=== PATIENT | male | born 1945 | race Two or more races ===

== ENCOUNTER 2024-10-24 10:24 | Inpatient (IN) | payer MEDICAID, OTHER ==
[~2024-10-24] VITALS: Ht 160 cm; Wt 68.0 kg
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
[2024-10-24] MEDS: HYDROcodone-ACET 5/325MG TAB PO ONE (11:43)
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
[2024-10-24] MEDS: DOPamine 1600MCG/ML D5W 250 ML IV ONE (13:00)
[2024-10-24 13:17] LABS: Hematocrit 41.6 % (41.0-53.0); Hemoglobin 13.8 g/dL (13.5-17.5); Mean Corpuscular Hemoglobin 28.3 pg (28.0-32.0); Mean Corpuscular Volume 85.1 fL (80.0-100.0); Nucleated Red Blood Cells % 0.3 %
[2024-10-24 13:27] LABS: Potassium 4.7 mmol/L (3.5-5.1); Sodium 141 mmol/L (136-145)
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
[2024-10-24 13:28] LABS: Anion Gap 8 (5-15); Calcium 9.0 mg/dL (8.7-10.4); Carbon Dioxide 26 mmol/L (20-31)
[2024-10-24 13:33] LABS: BUN/Creatinine Ratio 13.9 (10.0-20.0); Blood Urea Nitrogen 17 mg/dL (9-23)
[2024-10-24 13:34] LABS: Chloride 107 mmol/L (98-107); Glucose 141 mg/dL (74-106)
[2024-10-24] MEDS: ATROPINE SULF 1 MG/10ml SYR IV ONE ×2 (14:00→16:14)
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
[2024-10-24 14:12] VITALS: PULSE 50; RESP 16; O2SAT 98
[2024-10-24] MEDS ORDERED: HYDROcodone-ACET 5/325MG TAB PO PRN (14:15)
[2024-10-24] MEDS ORDERED: ACETAMINOPHEN 325 MG TAB PO PRN (14:15)
[2024-10-24] MEDS ORDERED: MORPHINE SULFATE INJ 2 MG/ml SYRG IV PRN (14:15)
[2024-10-24] MEDS ORDERED: NITROGLYCERIN 0.4 MG SL TAB SL PRN (14:15)
[2024-10-24] MEDS ORDERED: DOCUSATE SOD 100 MG CAP PO PRN (14:15)
[2024-10-24 15:02] LABS: Triglycerides 73.0 mg/dL (< 150)
[2024-10-24 15:03] LABS: Magnesium 2.1 mg/dL (1.6-2.6)
[2024-10-24 15:04] LABS: HDL Cholesterol 42.0 mg/dL (40-59)
[2024-10-24 15:05] LABS: Cholesterol 138.0 mg/dL (< 200)
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
--- NOTE | 2024-10-24 15:55 | DVHSR ---
APPROVED REPORT EXAM: Two-dimensional and M-mode echocardiogram with Doppler and color Doppler. Blood Pressure: 200/91 mmHg INDICATION Symptomatic bradycardia RISK FACTORS Height: 5'3", Weight: 184 DIMENSIONS LVDd (3.8-5.7cm)LA (2D)3.4 (1.9-4.0cm)Aortic Root3.2 (2.0-3.7cm) LVDs (2.5-4.0cm)LA (MM) (1.9-4.0cm)Aortic Cusp Exc1.6 (1.5-2.0cm) EF (%) 60.0 (55-70%)Rt. Atrium3.5 (1.9-4.0cm)Asc. Aorta cm IVSd (0.7-1.1cm)RV (D)3.4 (1.8-2.4cm) Mitral Valve MitralMitral Stenosis E wave0.84m/sMV Mean GR.mmHg E/A ratio0.02D MVAcm2 Aortic Valve Aortic ValveAortic Stenosis V11.03m/Gilda Mean GR.3mmHg V21.33m/Gilda Peak GR.7mmHg LVOT Diameter1.8 (1.8-2.4cm)Doppler AVA1.97cm2 Tricuspid Valve TR Velocity2.37m/s [id number] Other Information Quality : Rhythm : Bradycardia Technically limited study due to body habitus. Conclusion NORMAL LV EF AND IS 65% NORMAL VALVES NORMAL RV FUNCTION AND SIZE NO EFFUSION
[2024-10-24] MEDS: SODIUM CHLORIDE 0.9% 1,000 ML IV ONE (16:30)
[2024-10-24] MEDS: DOPamine 1600MCG/ML D5W 250 ML IV SCH (17:15)
[2024-10-24] MEDS ORDERED: LISI10TA34 PO (17:27)
[2024-10-24] MEDS ORDERED: ATROPINE SULF 1 MG/10ml SYR IV PRN (17:30)
[2024-10-24 19:30] VITALS: PULSE 52; RESP 15; O2SAT 96
[2024-10-24] MEDS: hydrALAZINE HCL 20 MG/ML VL IV PRN (21:01)
[2024-10-24] MEDS: ONDANSETRON HCL 4 MG/2 ML VIAL IV PRN (21:36)
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
[2024-10-25] VITALS (70 sets, daily range): BP systolic 94–189; BP diastolic 30–81; PULSE 46–99; RESP 8–19; TEMP 98.2–98.8; O2SAT 92–100
[2024-10-25 02:09] LABS: Urine Protein, UAD Negative (Negative)
[2024-10-25 04:01] LABS: Hematocrit 43.1 % (41.0-53.0); Hemoglobin 14.6 g/dL (13.5-17.5); Mean Corpuscular Hemoglobin 28.6 pg (28.0-32.0); Mean Corpuscular Volume 84.4 fL (80.0-100.0); Nucleated Red Blood Cells % 0.0 %
[2024-10-25 04:14] LABS: Alanine Aminotransferase 19 U/L (7-40); Albumin 3.9 g/dL (3.2-4.8); Alkaline Phosphatase 72 U/L (46-116); Anion Gap 10 (5-15); BUN/Creatinine Ratio 13.4 (10.0-20.0); Bilirubin, Total 0.7 mg/dL (0.2-1.0); Blood Urea Nitrogen 16 mg/dL (9-23); Calcium 9.0 mg/dL (8.7-10.4); Carbon Dioxide 23 mmol/L (20-31); Chloride 106 mmol/L (98-107); Potassium 4.0 mmol/L (3.5-5.1); Sodium 139 mmol/L (136-145); Total Protein 6.5 g/dL (5.7-8.2)
[2024-10-25 04:16] LABS: Glucose 168 mg/dL (74-106)
--- NOTE | 2024-10-25 07:12 | ECG ---
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
[2024-10-25] MEDS: DOPamine 1600MCG/ML D5W 250 ML IV SCH (11:45)
--- NOTE | 2024-10-25 14:13 | DVHPN2 ---
Subjective Currently on dopamine drip Heart rate in 60s Denies dizziness, chest pain or shortness Reviewed: Care Plan, H&P, Labs, Medications, Previous Orders, Radiology Changes from previous H/P or p: No Changes Eyes: No Pain, No Vision change, No Conjunctivae inflammation, No Eyelid inflammation, No Other, No Redness ENT: No Ear pain, No Ear discharge, No Nose pain, No Nose discharge, No Nose congestion, No Mouth pain, No Mouth swelling, No Throat pain, No Throat swelling, No Other Cardiovascular: No Chest Pain, No Palpitations, No Orthopnea, No Paroxysmal Noc. Dyspnea, No Edema, No Lt Headedness, No Other Respiratory: No Cough, No Dry, No Shortness of breath, No SOB with excertion, No Wheezing, No Hemoptysis, No Pleuritic Pain, No Sputum, No Other Gastrointestinal: No Nausea, No Vomiting, No Abdominal Pain, No Diarrhea, No Constipation, No Melena, No Hematochezia, No Other Genitourinary: No Dysuria, No Frequency, No Incontinence, No Hematuria, No Retention, No Other Musculoskeletal: No other, No neck pain, No shoulder pain, No arm pain, No back pain, No hand pain, No leg pain, No foot pain Skin: No Rash, No Lesions, No Jaundice, No Bruising, No Other Objective Vitals Vital Signs Date Time Temp Pulse Resp B/P (MAP) Pulse Ox O2 Delivery O2 Flow Rate FiO2 10/25/24 13:00 63 12 140/60 (86) 97 10/25/24 12:00 98.5 98.5 10/25/24 08:00 Room Air* 0 21 Intake/Output Intake and Output 10/25/24 07:00 Intake Total 1113.412 ml Output Total 450 ml Balance 663.412 ml Intake Oral 0 ml IV Total 1113.412 ml Output Urine Total 450 ml # Voids 2 Medications Current Medications Medications Dose Ordered Sig/Richard Route Start Time Stop Time Status Last Admin Dose Admin Acetaminophen/ Hydrocodone Bitart 1 tab Q4HP PRN PO 10/24/24 14:15 Ondansetron HCl 4 mg Q4HP PRN IV 10/24/24 14:15 10/24/24 21:36 4 MG Docusate Sodium 100 mg BIDPRN PRN PO 10/24/24 14:15 Acetaminophen 650 mg Q6HP PRN PO 10/24/24 14:15 Nitroglycerin 0.4 mg Q5MINP PRN SL 10/24/24 14:15 Morphine Sulfate 2 mg Q30M PRN IV 10/24/24 14:15 Atropine Sulfate 0.5 mg Q15MP PRN IV 10/24/24 17:30 Hydralazine HCl 10 mg Q6HP PRN IV 10/24/24 20:30 10/25/24 06:40 10 MG Dopamine HCl/ Dextrose 250 ml @ 15.731 mls/ hr [id number] IV 10/25/24 11:45 Laboratory Results Laboratory Tests 10/25/24 02:45 Chemistry Test 10/25/24 02:45 Albumin 3.9 g/dL (3.2-4.8) Calcium Level 9.0 mg/dL (8.7-10.4) Total Protein 6.5 g/dL (5.7-8.2) LFT Test 10/25/24 02:45 Alanine Aminotransferase (ALT) 19 U/L (7-40) Alkaline Phosphatase 72 U/L (46-116) Aspartate Amino Transferase (AST) 24 U/L (13-40) Total Bilirubin 0.7 mg/dL (0.2-1.0) Urinalysis Test 10/25/24 00:08 Urine Color Colorless (Yellow) Urine Clarity Clear (Clear) Urine pH 7.5 (5.0-9.0) Urine Specific [place] 1.009 (1.001-1.035) Urine Protein Negative (Negative) Urine Ketones Trace (Negative) Urine Blood Negative /uL (Negative) Urine Nitrite Negative (Negative) Urine Bilirubin Negative (Negative) Urine Urobilinogen Normal mg/dL (Negative) Urine Leukocyte Esterase Negative /uL (Negative) Urine RBC 4 /hpf (0 - 3) Urine Microscopic WBC 6 /HPF (0-3) H Urine Squamous Epithelial Cells None seen /hpf (<5) Urine Bacteria Few /hpf (None Seen) H Urine Glucose Normal mg/dL (Normal) Assessment/Plan Assessment/Plan Sinus bradycardia, currently asymptomatic Essential hypertension Type 2 diabetes s/p [facility] Plan/Recommendation (Dr. Huddleston ): The patient was started on dopamine drip last night, with improvement in heart rate into 60s. However, telemetry monitoring this morning revealed intermittent sinus pauses and continued episodes of bradycardia. Given the ongoing symptomatic bradycardia, the patient is deemed to be an appropriate candidate for permanent pacemaker implantation. Risks, benefits, and alternatives were discussed in detail with patient and his granddaughter, whom both expressed understanding and agreed to proceed with the procedure. Plan discussed with: Patient My Orders Orders - CATHERINE PANIAGUA Procedure Category Date Status Time Atropine Adult Syr PHA 10/24/24 In Process 0.1mg/Ml (Atropine Haddad 17:30 Date of Service: Oct 25, 2024 Billing Provider: LEI HUDDLESTON MD Common Visit Codes: CONSULT ONLY Consultation Codes: [id number] CONSULT <45MIN CATHERINE PANIAGUA Oct 25, 2024 14:13
[2024-10-25 15:02] LABS: INR 1.07 (0.9-1.15); Prothrombin Time 11.3 sec (9.3-11.8)
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
[2024-10-26] VITALS (95 sets, daily range): BP systolic 91–186; BP diastolic 31–82; PULSE 45–107; RESP 8–19; TEMP 98.1–99.8; O2SAT 87–100
--- NOTE | 2024-10-26 05:01 | DVH ---
CHEST RADIOGRAPH Indication: PROCEDURE PREP Technique: Single frontal view of the chest was obtained COMPARISON: XY RIBS BILATERAL on DOS: 10/24/24 FINDINGS: Lines and Tubes: None Lungs: Congestion Pleura: No effusion. No pneumothorax. Cardiomediastinal contours: Unremarkable Bones: Unremarkable IMPRESSION: Mild congestion
[2024-10-26 06:34] LABS: Hematocrit 44.7 % (41.0-53.0); Hemoglobin 15.4 g/dL (13.5-17.5); Mean Corpuscular Hemoglobin 28.9 pg (28.0-32.0); Mean Corpuscular Volume 84.0 fL (80.0-100.0); Nucleated Red Blood Cells % 0.1 %
[2024-10-26 06:35] LABS: INR 1.06 (0.9-1.15); Partial Thromboplastin Time 27.5 SEC (24.5-34.5); Prothrombin Time 11.2 sec (9.3-11.8)
[2024-10-26 06:40] LABS: Alanine Aminotransferase 20 U/L (7-40); Albumin 3.9 g/dL (3.2-4.8); Alkaline Phosphatase 70 U/L (46-116); Anion Gap 10 (5-15); BUN/Creatinine Ratio 16.3 (10.0-20.0); Blood Urea Nitrogen 20 mg/dL (9-23); Calcium 8.7 mg/dL (8.7-10.4); Carbon Dioxide 22 mmol/L (20-31); Chloride 109 mmol/L (98-107); Glucose 136 mg/dL (74-106); Potassium 4.0 mmol/L (3.5-5.1); Sodium 141 mmol/L (136-145); Total Protein 6.5 g/dL (5.7-8.2)
[2024-10-26 06:41] LABS: Bilirubin, Total 0.7 mg/dL (0.2-1.0)
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
[2024-10-26] MEDS: LISINOPRIL 5 MG TAB PO SCH (11:38)
[2024-10-26] MEDS ORDERED: ARTIFICIAL TEARS 15ml EACHEYE PRN (15:15)
[2024-10-26] MEDS ORDERED: LATA0.0020 EACHEYE (19:44)
[2024-10-26] MEDS: LATANOPROST 0.005 % OPTH(EYE) SOL 2.5ML EACHEYE SCH (22:00)
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
[2024-10-27] VITALS (99 sets, daily range): BP systolic 80–209; BP diastolic 26–102; PULSE 44–123; RESP 8–25; TEMP 98.1–98.5; O2SAT 6–99
[2024-10-27 05:03] LABS: Hematocrit 43.0 % (41.0-53.0); Hemoglobin 14.5 g/dL (13.5-17.5); Mean Corpuscular Hemoglobin 28.4 pg (28.0-32.0); Mean Corpuscular Volume 84.2 fL (80.0-100.0); Nucleated Red Blood Cells % 0.1 %
[2024-10-27 05:23] LABS: Alanine Aminotransferase 15 U/L (7-40); Alkaline Phosphatase 68 U/L (46-116); Anion Gap 7 (5-15); BUN/Creatinine Ratio 19.3 (10.0-20.0); Blood Urea Nitrogen 21 mg/dL (9-23); Carbon Dioxide 24 mmol/L (20-31); Magnesium 2.0 mg/dL (1.6-2.6); Potassium 4.2 mmol/L (3.5-5.1); Sodium 139 mmol/L (136-145); Total Protein 6.1 g/dL (5.7-8.2)
[2024-10-27 05:24] LABS: Albumin 3.6 g/dL (3.2-4.8); Bilirubin, Total 0.7 mg/dL (0.2-1.0)
[2024-10-27 05:25] LABS: Calcium 8.6 mg/dL (8.7-10.4); Chloride 108 mmol/L (98-107); Glucose 128 mg/dL (74-106)
[2024-10-27] MEDS: DOPamine 1600MCG/ML D5W 250 ML IV SCH (08:18)
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
[2024-10-28] VITALS (75 sets, daily range): BP systolic 80–196; BP diastolic 39–88; PULSE 41–126; RESP 7–19; TEMP 97.9–98.3; O2SAT 90–100
--- NOTE | 2024-10-28 03:28 | DVH ---
CHEST RADIOGRAPH Indication: PROCEDURE PREP Technique: 1 view Comparison: XY CHEST PORTABLE on DOS: 10/26/24, XY RIBS BILATERAL on DOS: 10/24/24 FINDINGS: Lines and Tubes: External leads. Lungs: Similar perihilar interstitial opacities and left basilar atelectasis. No focal consolidation . Pleura: No large pleural effusion or pneumothorax. Cardiomediastinal contours: Unchanged. Other: Unchanged. IMPRESSION: 1. No significant change from the prior exam. Interstitial opacities likely representing edema versus atypical infection.
[2024-10-28 05:22] LABS: Hematocrit 41.8 % (41.0-53.0); Hemoglobin 14.2 g/dL (13.5-17.5); Mean Corpuscular Hemoglobin 28.7 pg (28.0-32.0); Mean Corpuscular Volume 84.2 fL (80.0-100.0); Nucleated Red Blood Cells % 0.2 %
[2024-10-28] MEDS: NITROGLYCERIN 2% OINT 1GM PKG TD ONE (05:30)
[2024-10-28 05:44] LABS: Alanine Aminotransferase 16 U/L (7-40); Albumin 3.7 g/dL (3.2-4.8); Alkaline Phosphatase 67 U/L (46-116); Anion Gap 8 (5-15); BUN/Creatinine Ratio 15.3 (10.0-20.0); Bilirubin, Total 1.0 mg/dL (0.2-1.0); Blood Urea Nitrogen 18 mg/dL (9-23); Carbon Dioxide 25 mmol/L (20-31); Chloride 106 mmol/L (98-107); Potassium 4.1 mmol/L (3.5-5.1); Sodium 139 mmol/L (136-145); Total Protein 6.1 g/dL (5.7-8.2)
[2024-10-28 05:52] LABS: Calcium 8.7 mg/dL (8.7-10.4); Glucose 110 mg/dL (74-106)
[2024-10-28 05:59] LABS: INR 1.07 (0.9-1.15); Partial Thromboplastin Time 28.4 SEC (24.5-34.5); Prothrombin Time 11.3 sec (9.3-11.8)
[2024-10-28] MEDS: IODIXANOL 320MG/ML 100ML BTL IV ONE ×2 (07:58→09:12)
[2024-10-28] MEDS: LIDOCAINE 2%HCL (LOCAL ANESTH.) INJ 20ML MDV ONE (08:09)
[2024-10-28] MEDS: fentaNYL CITRATE 100 MCG/2 ML VL ONE (08:10)
[2024-10-28] MEDS: MIDAZOLAM HCL 2MG/2ML 2ml VIAL (1mg/ml) ONE (08:10)
[2024-10-28] MEDS: VANCOMYCIN 1GM/200ML PM 200 ML IV ONE (08:36)
[2024-10-28] MEDS: HEPARIN SODIUM (PORCINE) 5000 UNITS/ML 1ML VIAL ONE (08:44)
--- NOTE | 2024-10-28 10:33 | DVH ---
CHEST RADIOGRAPH Indication: PACEMAKER PLACEMENT Technique: Single frontal view of the chest was obtained COMPARISON: XY CHEST PORTABLE on DOS: 10/28/24, XY CHEST PORTABLE on DOS: 10/26/24, XY RIBS BILATERAL on DOS: 10/24/24 FINDINGS: Lines and Tubes: None Lungs: Clear Pleura: No effusion. No pneumothorax. Cardiomediastinal contours: Unremarkable Bones: Unremarkable IMPRESSION: No acute disease.
--- NOTE | 2024-10-28 11:08 | DVHOP ---
DATE OF SURGERY: 10/28/2024 TECHNIQUE PERFORMED: * Emergency case. * Ultrasound of the right femoral vein with an insertion of 6-Danish venous line in the right femoral vein. * Insertion of large caliber venous system in the right femoral venous line. * Fluoroscopic guidance and supervision. * Management of conscious sedation. * Deployment of the Micra permanent pacemaker in higher interventricular septum, assisted by Dr. Mclean. * Figure-8 suture. PRIMARY SURGEON: Dr. Roberto Huddleston. OTHER BUSINESS SERVICES REPRESENTATIVE: Amelie Keith. COMPLICATIONS: None. INDICATIONS: The patient has underlying sick sinus syndrome, profound bradycardia. The patient was dependent on the dopamine to keep the heart rate to normal. DESCRIPTION OF PROCEDURE: Risks and benefits discussed in a standard manner. The patient's right groin was shaved, was cleaned with soap and Betadine. IV Versed and fentanyl were given. The patient was given lidocaine. Venous line was obtained. A 6-Danish venous line had been placed subsequently under fluoroscopic guidance. We have exchanged with a large caliber venous line of the [employer] company and subsequently we have put a Micra device in a standard manner. We have to ultimately adjust into higher septum to get a better parameter and the procedure went well. All the venous sites had been very well sutured and there is no bleeding. There is no hematoma. We have following report available: Model #[id number], serial #[id number], assistant grocery is [employer]. Implantation date 10/28. Implantation site, right ventricular at the higher septum. The patient's R-wave is 9.5, pacing impedance 1740. The patient's threshold is 0.75 at 0.24 milliseconds and this device is a VDDD 50-110. The patient also got IV vancomycin prior to performing this procedure. Macho Huddleston MD MP/BOB/JOLIE TID: [id number] RECEIPT: [id number]
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
--- NOTE | 2024-10-28 12:45 | ECG ---
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
--- NOTE | 2024-10-28 13:32 | ECG ---
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
[2024-10-29] VITALS (11 sets, daily range): BP systolic 122–146; BP diastolic 56–77; PULSE 48–69; RESP 16–18; TEMP 97.4–98.5; O2SAT 96–99
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
[2024-10-30] VITALS (8 sets, daily range): BP systolic 104–145; BP diastolic 58–73; PULSE 50–60; RESP 16–18; TEMP 97.5–98.1; O2SAT 97–99
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
[2024-10-30] MEDS ORDERED: DOCUSATE SOD 100 MG CAP PO PRN (10:30)
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
[2024-10-31] VITALS (8 sets, daily range): BP systolic 105–152; BP diastolic 57–96; PULSE 49–62; RESP 18; TEMP 97.8–98.4; O2SAT 97–98
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
[2024-11-01 01:00] VITALS: BP 149/55; PULSE 56; RESP 18; TEMP 98.2; O2SAT 99
[2024-11-01 05:00] VITALS: BP 111/74; PULSE 66; RESP 18; TEMP 98.6; O2SAT 97
[2024-11-01 08:00] VITALS: PULSE 50; PULSE 60; RESP 18; O2SAT 97
[2024-11-01 08:39] VITALS: BP 124/68; PULSE 50; RESP 20; TEMP 97.9; O2SAT 99
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
[2024-11-01] MEDS ORDERED: LISI20TA56 PO (12:01)
[2024-11-01 12:46] VITALS: BP 102/67; PULSE 54; RESP 20; TEMP 97.6; O2SAT 98
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
== END 2024-11-01 16:00 | disposition home or self-care (01) | DRG 171 ==
LOC: EDBD 10:24 → ER 10:24 → OVERFLOW 14:01 → ICU CENTRL 10-25 05:16 → TELE-WESTW 10-28 17:25
PROVIDERS: ADMIT Family Medicine; ATTEND Family Medicine
PROC: 02HK3NZ Insertion of Intracardiac Pacemaker into Right Ventricle, Percutaneous Approach (ICD-10-PCS; principal; 2024-10-28)
PROC: 4B02XSZ Measurement of Cardiac Pacemaker, External Approach (ICD-10-PCS; 2024-11-01)
DX: I49.5 Sick sinus syndrome (principal); E11.9 Type 2 diabetes mellitus without complications; I44.0 Atrioventricular block, first degree; Z00.6 Encounter for examination for normal comparison and control in clinical research program; I10 Essential (primary) hypertension; M79.18 Myalgia, other site; S50.311A Abrasion of right elbow, initial encounter; Z79.899 Other long term (current) drug therapy; V89.2XXA Person injured in unspecified motor-vehicle accident, traffic, initial encounter; Y93.89 Activity, other specified; Y92.89 Other specified places as the place of occurrence of the external cause; Y99.8 Other external cause status
CPT/HCPCS: 33274; 36415; 70450; 71045; 71111; 73070; 80048; 80053; 80061; 81001; 82962; 83036; 83735; 84443; 84484; 85025; 85610; 85730; 86850; 86900; 86901; 87081; 93005; 93306; 96374; 96375; 99152; 99291; 99292; G0378; J2250; J2405; Q9967

== ENCOUNTER 2024-11-12 18:00 | Inpatient (IN) | payer MEDICAID ==
[~2024-11-12] VITALS: Ht 152.4 cm; Wt 64.8 kg
[~2024-11-12 18:00] MED LIST: LATA0.0020 EACHEYE; LISI10TA34 PO; LISI20TA56 PO
--- NOTE | 2024-11-12 18:51 | ED.PDOC ---
GI ASSESSMENT HPI Comments HPI: 79-year-old male came to the ER due to vomiting and diarrhea. Patient accompanied by granddaughter who gets history for us. States patient since this morning has been having episodes of nausea, vomiting 2x, and loose yellowish diarrhea 3x. States he could not keep anything in. Also complaining of lower abdominal pain, dizziness and generalized weakness Initial Vitals BP: 161/55 HR: 57 RR: 13 O2: 97% Temp: 98.1 F Past Medical History: Hypertension Past Surgical History: Pacemaker two weeks ago Social History: Denies ETOH, smoking, and drug use. Medications: Lisinopril Allergies: None HPI: Poor Historian. Onset of symptoms today. Nausea vomiting nonbilious nonbloody color is food content. Diarrhea is yellow in color. Generalized weakness. Had earlier some lower abdominal pain but has resolved prior to our evaluation. Stool studies were ordered and requested from the patient. REVIEW OF SYSTEMS: CONSTITUTIONAL: Denies acute: fever, diaphoresis, chills, HEAD: Denies acute: headache, photophobia Eyes: Denies acute: Double vision, vision loss, eye pain, eye discharge. EARS: Denies acute: tinnitus, hearing loss, ear discharge, ear pain, THROAT: Denies acute: sore throat, swelling, difficulty swallowing , pain with swallowing, change in voice. NECK: Denies acute: neck pain, neck swelling, stiff neck. HEART: Denies acute : chest pain, palpitations, LUNGS: Denies acute: SOB, wheezing, cough, hemoptysis ABDOMEN: Denies acute: abdominal pain, melena , hematemesis, hematochezia SKIN: Denies acute: rash, redness, lesions, itchiness. EXTREMITIES: Denies acute: calf pain, numbness, tingling, weakness, denies pain in extremity. Denies acute: Low back pain. Neuro: Denies acute: focal neurological deficit, motor or sensory focal neurological deficit, tremors, seizure like activity, confusion, dizziness, change in mental status, loss of bowel or bladder function, cauda equina like symptoms. PSYCH: Denies acute: hallucination, suicidal ideation, homicidal ideation. FEMALE: Denies acute: abnormal vaginal bleeding, foul odor, unusual discharge. PHYSICAL EXAM: General: ----mild----acute distress, awake and alert. Head: normocephalic, atraumatic. Neck: supple, trachea is midline, no swelling. Throat: Normal phonation. Eyes:, no erythema, no purulent discharge, no proptosis, no icterus. Heart: regular rate, regular rhythm, no significant murmur appreciated. Lungs: no apparent respiratory distress, Able to speak in full sentences. No wheezing, no rhonchi, no crackles. No stridors Clear to auscultation bilaterally. Abdomen: non tender to palpation, non distended, soft, no guarding, no rebound, + bowel sounds. Neuro: Awake, Alert, oriented to name, self, situation, follows commands GCS=15. Speech is normal. Skin: no petechia, no purpura, no cyanosis, non-pale, not jaundice. Lower extremities: --no - Pitting edema no deformity, no focal swelling, no calf TTP. Makes eye contact. moves all four extremities. Face: no apparent facial droop. ED COURSE: DISCLAIMER: This medical document was created using an electronic medical record system with voice recognition software and computerized dictation system. Although this document has been carefully reviewed, there might still be some phonetic and typographical errors. Occasional wrong-word or "sound-alike" substitutions may have occurred due to the inherent limitations of voice recognition software. These areas are purely typographical due to imperfections of the software programs and do not reflect any compromise in the patient's medical care. Please read the chart carefully and recognize, using context, where these substitutions have occurred. Chief Complaint: Nausea/Vomiting Time Seen by MD: 18:50 Reviewed Notes: Nurses Notes Allergies: Coded Allergies: NO KNOWN ALLERGIES (Unverified , 10/24/24) Home Meds Active Scripts Lisinopril (Lisinopril) 20 Mg Tab, 1 TAB PO DAILY, #90 TAB 1 Refill Prov:ADELINE CANALES MD 11/01/24 Reported Medications Latanoprost (Xalatan) 0.005 % Johanna, 1 DROP EACHEYE QPM, #2.5 ML 6 Refills 10/26/24 Lisinopril (Lisinopril) 10 Mg Tab, 10 MG PO DAILY, TAB 10/24/24 Information Source: Patient, Relative (GrandChild) Mode of Arrival: Ambulatory Timing: Hours Duration: Since onset Past Medical History PAST MEDICAL HISTORY: HTN Surgical History: Pacemaker Family History Family History: Reviewed,noncontributory to illness, No family hx of Cancer, No family hx of DM, No family hx of Heart rupert, No family hx of HTN, No family hx ofKidney rupert, No family hx of Liver rupert, No family hx of Lung rupert, No family hx of Stroke Social History Smoker: Non-Smoker Alcohol: Denies ETOH Use Drugs: Denies Drug Use Lives In: Home X-Ray, Labs, Meds, VS Vital Signs Date Time Temp Pulse Resp B/P (MAP) Pulse Ox O2 Delivery O2 Flow Rate FiO2 11/12/24 18:02 98.1 57 13 161/55 97 98.1 Lab Test 11/12/24 19:53 11/12/24 19:13 Range/Units Urine Color Light-yellow Yellow Urine Clarity Clear Clear Urine pH 5.5 5.0-9.0 Urine Specific [place] 1.009 1.001-1.035 Urine Protein Negative Negative Urine Ketones Negative Negative Urine Blood Negative Negative /uL Urine Nitrite Negative Negative Urine Bilirubin Negative Negative Urine Urobilinogen Normal Negative mg/dL Urine Leukocyte Esterase Trace Negative /uL Urine RBC <1 0 - 3 /hpf Urine Microscopic WBC 4 H 0-3 /HPF Urine Squamous Epithelial Cells Few <5 /hpf Urine Bacteria None seen None Seen /hpf Urine Glucose Normal Normal mg/dL White Blood Count 11.3 H 4.4-10.8 10^3/uL Red Blood Count 4.79 4.5-5.90 10^6/uL Hemoglobin 13.5 13.5-17.5 g/dL Hematocrit 40.7 L 41.0-53.0 % Mean Corpuscular Volume 85.0 80.0-100.0 fL Mean Corpuscular Hemoglobin 28.1 28.0-32.0 pg Mean Corpuscular Hemoglobin Concent 33.1 32.0-36.0 g/dL Red Cell Distribution Width 13.8 11.8-14.3 % Platelet Count 193 140-450 10^3/uL Mean Platelet Volume 9.2 6.9-10.8 fL Neutrophils (%) (Auto) 75.9 37.0-80.0 % Lymphocytes (%) (Auto) 15.1 10.0-50.0 % Monocytes (%) (Auto) 8.1 0.0-12.0 % Eosinophils (%) (Auto) 0.7 0.0-7.0 % Basophils (%) (Auto) 0.2 0.0-2.0 % Neutrophils # (Auto) 8.6 1.6-8.6 10 ^3/uL Lymphocytes # (Auto) 1.7 0.4-5.4 10 ^3/uL Monocytes # (Auto) 0.9 0-1.3 10 ^3/uL Eosinophils # (Auto) 0.1 0-0.8 10 ^3/uL Basophils # (Auto) 0 0-0.2 10 ^3/uL Nucleated Red Blood Cells 0.0 % Sodium Level 135 L 136-145 mmol/L Potassium Level 4.5 3.5-5.1 mmol/L Chloride Level 102 98-107 mmol/L Carbon Dioxide Level 24 20-31 mmol/L Anion Gap 9 5-15 Blood Urea Nitrogen 31 H 9-23 mg/dL Creatinine 1.18 0.700-1.30 mg/dL Glomerular Filtration Rate Calc 62 >90 mL/min BUN/Creatinine Ratio 26.3 H 10.0-20.0 Serum Glucose 97 74-106 mg/dL Lactic Acid Level 1.5 0.4-2.0 mmol/L Calcium Level 8.4 L 8.7-10.4 mg/dL Total Bilirubin 1.1 H 0.2-1.0 mg/dL Aspartate Amino Transferase (AST) 17 13-40 U/L Alanine Aminotransferase (ALT) 15 7-40 U/L Alkaline Phosphatase 68 46-116 U/L Troponin I High Sensitivity 5 </=54 ng/L Total Protein 6.2 5.7-8.2 g/dL Albumin 3.7 3.2-4.8 g/dL Lipase 44 12-53 U/L [address] [address] Ph: [phone] DIAGNOSTIC IMAGING Diagnostic Imaging Report : [id number] Signed PATIENT: BRANDI ANGELA ACCT: [id number] UNIT: [id number] : 1945 LOC: ER ROOM / BED: / AGE / SEX: 79 / M ADM STATUS: REG ER SERVICE 1809 ORDERING PHYSICIAN: EVE SHAIKH DO PROCEDURE(s): ABPL - CT AB PEL WO CON-NO ORAL OR IV REASON: N/V/D ABD PAIN ORDER NUMBER(s): [id number], ACCESSION NUMBER(s): [id number] Exam: CT CT AB PEL WO CON-NO ORAL OR IV History: N/V/D ABD PAIN Comparison Study: None TECHNIQUE: Multidetector CT of the abdomen AND PELVIS without IV contrast. Axial, coronal and sagittal multiplanar reformats were obtained from the axial data set by the technologist. Radiation Dose Information: CT Dose: CTDI volume is 12.96 mGy. Dose-length product is 691.9 mGy*cm FINDINGS: Bibasilar atelectasis/ scarring. Partially visualized heart is normal in size. Nonspecific Metallic density with Streak artifact over the root of the pulmonary trunk. Liver, spleen, gallbladder, pancreas and adrenal glands are unremarkable. 1.4 cm exophytic right renal lower pole cyst with mild bilateral pelviectasis and no obstructing calculus noted. The urinary bladder is mildly distended with minimal wall thickening. Enlarged prostate measuring 4.7 x 6.2 by 6.7 cm with f oci of calcification. Mild gastric wall thickening. The small bowel loops are fluid-filled with mild distention of the proximal duodenum up to 3.2 cm. Appendix is unremarkable. Small to moderate amount of fecal material within the colon. No evidence of intraperitoneal free air or free fluid. No evidence of aortic aneurysm. Mild atherosclerotic calcification of the aorta and bilateral iliacs. No significant lymphadenopathy. Minimal body wall edema. Tiny fat containing umbilical hernia. No evidence of acute osseous abnormalities. IMPRESSION: Mild gastric wall thickening should be due to inadequate distention/ mild gastritis. Small bowel loops are fluid-filled with mild distention of the proximal duodenum up to 3.2 cm which may be associated with enteritis and ileus. Early bowel obstruction can not be excluded. Urinary bladder is mildly distended with minimal wall thickening. Correlation with urinalysis is recommended to exclude cystitis. Enlarged prostate. Recommend correlation with PSA. Small right renal cyst with Mild bilateral pelviectasis and no obstructing renal calculi bilaterally. ATED BY: CASSY QUINTANILLA DO DICTATED DATE/TIME: 11/12/241928 SIGNED BY: CASSY QUINTANILLA DO SIGNED DATE/TIME: 11/12/241928 CC: Time of 1ST Reevaluation: 18:57 Reevaluation 1ST: Unchanged Patient Education/Counseling: Diagnosis, Treatment Family Education/Counseling: Diagnosis, Treatment SEPSIS Sepsis Screen Date sepsis recognized/suspect: Nov 12, 2024 Time Sepsis recognized/suspect: 1801 Recent Procedure: No On Antibiotic Therapy: No Respiratory Rate >20: No Heart Rate >90: No Temp<36 C (96.8 F) or >38.3 C: No SBP <90 or MAP <65 mmHG: No New Acute Mental Status Change: No Is the patient on CPAP, BIPAP,: No Physician Orders [employer] (11/12/24 ) Electrocardigram (11/12/24 18:09) Ct Ab Pel Wo Con-No Oral Or Iv (11/12/24 18:09) Stool Wbc (11/12/24 18:09) Ova & Parasite Exam (11/12/24 18:09) Clostridium Difficile Toxin (11/12/24 18:09) Stool Bacterial Culture (11/12/24 18:09) Vital Signs Date Time Temp Pulse Resp B/P (MAP) Pulse Ox O2 Delivery O2 Flow Rate FiO2 11/12/24 18:02 98.1 57 13 161/55 97 98.1 Laboratory Tests Test 11/12/24 19:13 Lactic Acid Level 1.5 mmol/L (0.4-2.0) White Blood Count 11.3 10^3/uL (4.4-10.8) H Departure 1 Departure Time of Disposition: 20:34 Impression: Primary Impression: Nausea vomiting and diarrhea Additional Impression: Abnormal finding on CT scan Disposition: ADMITTED INPATIENT Admit to: Tele Condition: Guarded Discharged With: Self Critical Care Note Critical Care Time?: No I personally scribed for EVE SHAIKH DO ([facility]) on 11/12/24 at 18:51. Electronically submitted by Chi Au ([facility]). I personally scribed for EVE SHAIKH DO ([email or web address]) on 11/12/24 at 18:57. Electronically submitted by hCi Au ([facility]). I personally scribed for EVE SHIAKH DO ([facility]) on 11/12/24 at 19:12. Electronically submitted by Chi Au ([facility]). I personally scribed for EVE SHAIKH DO ([facility]) on 11/12/24 at 19:49. Electronically submitted by Chi Au ([facility]). EVE SHAIKH DO Nov 12, 2024 18:51
--- NOTE | 2024-11-12 19:32 | DVH ---
Exam: CT CT AB PEL WO CON-NO ORAL OR IV History: N/V/D ABD PAIN Comparison Study: None TECHNIQUE: Multidetector CT of the abdomen AND PELVIS without IV contrast. Axial, coronal and sagitta l multiplanar reformats were obtained from the axial data set by the technologist. Radiation Dose Information: CT Dose: CTDI volume is 12.96 mGy. Dose-length product is 691.9 mGy*cm FINDINGS: Bibasilar atelectasis/ scarring. Partially visualized heart is normal in size. Nonspecific Metallic d ensity with Streak artifact over the root of the pulmonary trunk. Liver, spleen, gallbladder, pancreas and adrenal glands are unremarkable. 1.4 cm exophytic right renal lower pole cyst with mild bilateral pelviectasis and no obstructing timo culus noted. The urinary bladder is mildly distended with minimal wall thickening. Enlarged prostate measuring 4.7 x 6.2 by 6.7 cm with foci of calcification. Mild gastric wall thickening. The small bowel loops are fluid-filled with mild distention of the prox imal duodenum up to 3.2 cm. Appendix is unremarkable. Small to moderate amount of fecal material with in the colon. No evidence of intraperitoneal free air or free fluid. No evidence of aortic aneurysm. Mild atherosclerotic calcification of the aorta and bilateral iliacs . No significant lymphadenopathy. Minimal body wall edema. Tiny fat containing umbilical hernia. No evidence of acute osseous abnormal ities. IMPRESSION: Mild gastric wall thickening should be due to inadequate distention/ mild gastritis. Small bowel loops are fluid-filled with mild distention of the proximal duodenum up to 3.2 cm which m ay be associated with enteritis and ileus. Early bowel obstruction can not be excluded. Urinary bladder is mildly distended with minimal wall thickening. Correlation with urinalysis is rec ommended to exclude cystitis. Enlarged prostate. Recommend correlation with PSA. Small right renal cyst with Mild bilateral pelviectasis and no obstructing renal calculi bilaterally.
[2024-11-12 19:47] LABS: Hematocrit 40.7 % (41.0-53.0); Hemoglobin 13.5 g/dL (13.5-17.5); Mean Corpuscular Hemoglobin 28.1 pg (28.0-32.0); Mean Corpuscular Volume 85.0 fL (80.0-100.0); Nucleated Red Blood Cells % 0.0 %
[2024-11-12 20:01] LABS: Alanine Aminotransferase 15 U/L (7-40); Albumin 3.7 g/dL (3.2-4.8); Alkaline Phosphatase 68 U/L (46-116); Anion Gap 9 (5-15); BUN/Creatinine Ratio 26.3 (10.0-20.0); Carbon Dioxide 24 mmol/L (20-31); Chloride 102 mmol/L (98-107); Glucose 97 mg/dL (74-106); Lipase 44 U/L (12-53); Potassium 4.5 mmol/L (3.5-5.1); Total Protein 6.2 g/dL (5.7-8.2)
[2024-11-12 20:02] LABS: Bilirubin, Total 1.1 mg/dL (0.2-1.0)
[2024-11-12 20:05] LABS: Blood Urea Nitrogen 31 mg/dL (9-23); Calcium 8.4 mg/dL (8.7-10.4); Sodium 135 mmol/L (136-145)
[2024-11-12 20:24] LABS: Urine Protein, UAD Negative (Negative)
[2024-11-12] MEDS: ONDANSETRON HCL 4 MG/2 ML VIAL IV ONE (20:45)
[2024-11-12] MEDS: SODIUM CHLORIDE 0.9% 1,000 ML IV ONE (20:45)
[2024-11-13] VITALS (8 sets, daily range): BP systolic 120–149; BP diastolic 58–72; PULSE 50–70; RESP 16–19; TEMP 97.6–99; O2SAT 97–100
[2024-11-13] MEDS ORDERED: DOCUSATE SOD 100 MG CAP PO PRN
[2024-11-13] MEDS ORDERED: ONDANSETRON HCL 4 MG/2 ML VIAL IV PRN
[2024-11-13] MEDS ORDERED: MORPHINE SULFATE INJ 2 MG/ml SYRG IV PRN
[2024-11-13] MEDS ORDERED: NITROGLYCERIN 0.4 MG SL TAB SL PRN
[2024-11-13] MEDS ORDERED: ACETAMINOPHEN 325 MG TAB PO PRN
[2024-11-13] MEDS ORDERED: HYDROcodone-ACET 5/325MG TAB PO PRN
--- NOTE | 2024-11-13 00:02 | DVHHP2 ---
History of Present Illness Reason for Visit: Intractable nausea and vomiting History of Present Illness The patient is a 79-year-old male with past medical history of hypertension who presented to [facility] ED for evaluation of vomiting and diarrhea. As reported by patient's granddaughter, patient has been having episode of nausea, vomiting, and loose yellowish diarrhea 3 times, unable to keep anything in stomach, associated with lower abdominal pain, dizziness, and generalized weakness. Patient was seen and evaluated in the ED, laboratory data shows WBC 11.3, platelets 193, sodium 135, potassium 4.5, BUN 31, creatinine 1.18, glucose 97, calcium 8.4, total bilirubin 1.1, lipase 44, troponin 5, blood pressure 157/71, heart rate 55, temperature 98.1 F, O2 saturation 97% on room air. Abdomen/pelvis CT revealing mild gastric wall thickening could be due to inadequate distention/mild gastritis, small bowel loops fluid-filled with mild distention of the proximal duodenum up to 3.2 cm which may be associated with enteritis and ileus, Jael bowel obstruction can not be excluded. Patient was started on IV antibiotic regimen Flagyl, please see medication orders section in the computer. On my assessment, patient denied chest pain, no headache, no dizziness, no shortness of breaths, no abdominal pain, nausea or vomiting at this moment, no fever, no chills. Patient was admitted for further evaluation and medical management. Past Medical History Hypertension Past Surgical History Pacemaker two weeks ago Family History Reviewed, noncontributory to the management of this case. Past Social History The patient lives at home, denies smoking, alcohol or illicit drugs abuse. Review of Systems Constitutional: Yes: Weakness; No: Fever, Chills, Sweats, Malaise, Other Eyes: No: Pain, Vision change, Conjunctivae inflammation, Eyelid inflammation, Other, Redness ENT: No: Ear pain, Ear discharge, Nose pain, Nose discharge, Nose congestion, Mouth pain, Mouth swelling, Throat pain, Throat swelling, Other Respiratory: No: Cough, Dry, Shortness of breath, SOB with excertion, Wheezing, Hemoptysis, Pleuritic Pain, Sputum, Wheezing, Other Cardiovascular: No: Chest Pain, Palpitations, Orthopnea, Paroxysmal Noc. Dyspnea, Edema, Lt Headedness, Other Gastrointestinal: Nausea, Vomiting, Abdominal Pain, Diarrhea; No: Constipation, Melena, Hematochezia, Other Genitourinary: No Dysuria, No Frequency, No Incontinence, No Hematuria, No Retention, No Other Musculoskeletal: No: other, neck pain, shoulder pain, arm pain, back pain, hand pain, leg pain, foot pain Skin: No: Rash, Lesions, Jaundice, Bruising, Other Neurological: No: Weakness, Numbness, Incoordination, Change in speech, Confusion, Seizures, Other Allergies: Coded Allergies: NO KNOWN ALLERGIES (Unverified , 10/24/24) Exam Vital Signs Vital Signs Date Time Temp Pulse Resp B/P (MAP) Pulse Ox O2 Delivery O2 Flow Rate FiO2 11/12/24 22:39 98.1 55 20 157/71 (99) 97 98.1 11/12/24 22:39 Room Air General Appearance: Alert, Oriented X3, Cooperative, No acute distress HEENT: Atraumatic, PERRLA, EOMI, Mucous membr. moist/pink Respiratory: Normal air movement Cardiovascular: Regular rate, Normal S1, Normal S2, No murmurs Abdominal: Normal bowel sounds, Soft, No tenderness, No hepatospenomegaly, No masses Extremities: No clubbing, No cyanosis, No edema, Normal pulses, No tenderness/swelling Skin: No rashes, No breakdown, No significant lesion Neuro: Normal speech, Normal tone, Sensation intact, Cranial nerves 3-12 NL, Reflexes 2+, Other (Generalized weakness) Psych/Mental Status: Mental status NL, Mood NL Labs/Xrays Labs Test 11/12/24 19:53 11/12/24 19:13 Range/Units Urine Color Light-yellow Yellow Urine Clarity Clear Clear Urine pH 5.5 5.0-9.0 Urine Specific [place] 1.009 1.001-1.035 Urine Protein Negative Negative Urine Ketones Negative Negative Urine Blood Negative Negative /uL Urine Nitrite Negative Negative Urine Bilirubin Negative Negative Urine Urobilinogen Normal Negative mg/dL Urine Leukocyte Esterase Trace Negative /uL Urine RBC <1 0 - 3 /hpf Urine Microscopic WBC 4 H 0-3 /HPF Urine Squamous Epithelial Cells Few <5 /hpf Urine Bacteria None seen None Seen /hpf Urine Glucose Normal Normal mg/dL White Blood Count 11.3 H 4.4-10.8 10^3/uL Red Blood Count 4.79 4.5-5.90 10^6/uL Hemoglobin 13.5 13.5-17.5 g/dL Hematocrit 40.7 L 41.0-53.0 % Mean Corpuscular Volume 85.0 80.0-100.0 fL Mean Corpuscular Hemoglobin 28.1 28.0-32.0 pg Mean Corpuscular Hemoglobin Concent 33.1 32.0-36.0 g/dL Red Cell Distribution Width 13.8 11.8-14.3 % Platelet Count 193 140-450 10^3/uL Mean Platelet Volume 9.2 6.9-10.8 fL Neutrophils (%) (Auto) 75.9 37.0-80.0 % Lymphocytes (%) (Auto) 15.1 10.0-50.0 % Monocytes (%) (Auto) 8.1 0.0-12.0 % Eosinophils (%) (Auto) 0.7 0.0-7.0 % Basophils (%) (Auto) 0.2 0.0-2.0 % Neutrophils # (Auto) 8.6 1.6-8.6 10 ^3/uL Lymphocytes # (Auto) 1.7 0.4-5.4 10 ^3/uL Monocytes # (Auto) 0.9 0-1.3 10 ^3/uL Eosinophils # (Auto) 0.1 0-0.8 10 ^3/uL Basophils # (Auto) 0 0-0.2 10 ^3/uL Nucleated Red Blood Cells 0.0 % Sodium Level 135 L 136-145 mmol/L Potassium Level 4.5 3.5-5.1 mmol/L Chloride Level 102 98-107 mmol/L Carbon Dioxide Level 24 20-31 mmol/L Anion Gap 9 5-15 Blood Urea Nitrogen 31 H 9-23 mg/dL Creatinine 1.18 0.700-1.30 mg/dL Glomerular Filtration Rate Calc 62 >90 mL/min BUN/Creatinine Ratio 26.3 H 10.0-20.0 Serum Glucose 97 74-106 mg/dL Lactic Acid Level 1.5 0.4-2.0 mmol/L Calcium Level 8.4 L 8.7-10.4 mg/dL Total Bilirubin 1.1 H 0.2-1.0 mg/dL Aspartate Amino Transferase (AST) 17 13-40 U/L Alanine Aminotransferase (ALT) 15 7-40 U/L Alkaline Phosphatase 68 46-116 U/L Troponin I High Sensitivity 5 </=54 ng/L Total Protein 6.2 5.7-8.2 g/dL Albumin 3.7 3.2-4.8 g/dL Lipase 44 12-53 U/L PATIENT: BRANDI ANGELA ACCT: [id number] UNIT: [id number] : 1945 LOC: ER ROOM / BED: / AGE / SEX: 79 / M ADM STATUS: REG ER SERVICE 08 ORDERING PHYSICIAN: EVE SHAIKH DO PROCEDURE(s): ABPL - CT AB PEL WO CON-NO ORAL OR IV REASON: N/V/D ABD PAIN ORDER NUMBER(s): [id number], ACCESSION NUMBER(s): [id number] Exam: CT CT AB PEL WO CON-NO ORAL OR IV History: N/V/D ABD PAIN Comparison Study: None TECHNIQUE: Multidetector CT of the abdomen AND PELVIS without IV contrast. Axial, coronal and sagittal multiplanar reformats were obtained from the axial data set by the technologist. Radiation Dose Information: CT Dose: CTDI volume is 12.96 mGy. Dose-length product is 691.9 mGy*cm FINDINGS: Bibasilar atelectasis/ scarring. Partially visualized heart is normal in size. Nonspecific Metallic density with Streak artifact over the root of the pulmonary trunk. Liver, spleen, gallbladder, pancreas and adrenal glands are unremarkable. 1.4 cm exophytic right renal lower pole cyst with mild bilateral pelviectasis and no obstructing calculus noted. The urinary bladder is mildly distended with minimal wall thickening. Enlarged prostate measuring 4.7 x 6.2 by 6.7 cm with foci of calcification. Mild gastric wall thickening. The small bowel loops are fluid-filled with mild distention of the proximal duodenum up to 3.2 cm. Appendix is unremarkable. Small to moderate amount of fecal material within the colon. No evidence of intraperitoneal free air or free fluid. No evidence of aortic aneurysm. Mild atherosclerotic calcification of the aorta and bilateral iliacs. No significant lymphadenopathy. Minimal body wall edema. Tiny fat containing umbilical hernia. No evidence of acute osseous abnormalities. IMPRESSION: Mild gastric wall thickening should be due to inadequate distention/mild gastritis. Small bowel loops are fluid-filled with mild distention of the proximal duodenum up to 3.2 cm which may be associated with enteritis and ileus. Early bowel obst ruction can not be excluded. Urinary bladder is mildly distended with minimal wall thickening. Correlation with urinalysis is recommended to exclude cystitis. Enlarged prostate. Recommend correlation with PSA. Small right renal cyst with Mild bilateral pelviectasis and no obstructing renal calculi bilaterally. SEPSIS Sepsis Screen Date sepsis recognized/suspect: Nov 12, 2024 Time Sepsis recognized/suspect: 2256 Recent Procedure: No On Antibiotic Therapy: No Respiratory Rate >20: No Heart Rate >90: No Temp<36 C (96.8 F) or >38.3 C: No SBP <90 or MAP <65 mmHG: No New Acute Mental Status Change: No Is the patient on CPAP, BIPAP,: No Physician Orders Market Specialist (11/12/24 ) Electrocardigram (11/12/24 18:09) Ct Ab Pel Wo Con-No Oral Or Iv (11/12/24 18:09) Stool Wbc (11/12/24 18:09) Ova & Parasite Exam (11/12/24 18:09) Clostridium Difficile Toxin (11/12/24 18:09) Stool Bacterial Culture (11/12/24 18:09) Admit (11/12/24 23:58) Allergies (11/12/24 23:58) Code Status (11/12/24 23:58) 0.9% Ns 1000 Ml (11/13/24 00:00) Oxygen Per Hour (11/12/24 23:58) Hydrocodone-Acet 5/325mg Tab ([place] 5/32 (11/13/24 00:00) Ondansetron Hcl (Zofran) (11/13/24 00:00) Docusate Sodium Capsule (Colace Capsule) (11/13/24 00:00) Fall Risk Precautions In Place QSHIFT (11/12/24 23:58) Complete Blood Count (11/13/24 04:00) Comprehensive Metabolic Panel (11/13/24 04:00) Condition: Serious (11/12/24 23:58) Acetaminophen Tablet (Tylenol Tablet) (11/13/24 00:00) Clear Liq Diet (11/13/24 Breakfast) Bedrest With Bathroom Privileg (11/12/24 23:58) Maintain Bed Rest (11/12/24 23:58) Sequential Compression Device (11/12/24 ) Nitroglycerin Sublingual (Ntrostat Subli (11/13/24 00:00) Morphine Sulfate Injection (11/13/24 00:00) Stat Ekg For Chest Pain (11/12/24 23:58) Notify Md Of Changes From Base (11/12/24 23:58) Inspector [employer] For 24 Hours (11/12/24 23:58) Emergency Dysrhythmia Protocol (11/12/24 23:58) Rhythm Strips Once Every Shift (11/12/24 23:58) Oxygen By Nasal Cannula (11/12/24 23:58) Ceftriaxone Ivpb Rocephin (11/13/24 09:00) Ceftriaxone Ivpb Rocephin (11/13/24 00:00) Metronidazole Ivpb Flagyl (11/13/24 06:00) Vital Signs Date Time Temp Pulse Resp B/P (MAP) Pulse Ox O2 Delivery O2 Flow Rate FiO2 11/12/24 22:39 98.1 55 20 157/71 (99) 97 98.1 11/12/24 22:39 55 20 99 Room Air 11/12/24 18:02 98.1 57 13 161/55 97 98.1 Laboratory Tests Test 11/12/24 19:13 Lactic Acid Level 1.5 mmol/L (0.4-2.0) White Blood Count 11.3 10^3/uL (4.4-10.8) H Medications Medications Dose Ordered Sig/Richard Route Start Time Stop Time Status Last Admin Dose Admin Metronidazole 100 ml @ 100 mls/hr ONCE ONCE IV 11/12/24 20:45 11/12/24 21:44 DC 11/12/24 22:52 100 MLS/HR Sodium Chloride 1,000 ml @ 1,000 mls/hr Q1H ONCE IV 11/12/24 20:45 11/12/24 21:44 DC 11/12/24 20:45 1,000 MLS/HR Assessment/Plan Assessment/Plan Nausea vomiting and diarrhea Gastritis Enteritis Symptomatic bradycardia Leukocytosis, unspecified Generalized weakness Plan 1. Admit to telemetry unit 2. Breathing treatment 3. Pain control management 4. IV antibiotic management 5. Management of fluids and electrolytes 6. Consultation for GI/hospitalist 7. Diagnostic test abdomen/pelvis CT 8. DVT prophylaxis on SCDs 9. Repeat labs CBC, CMP in 10. Home medication reviewed and reconciled 11. Continue with current medical management 12. Treatment plan discussed with patient and RN. Patient verbalized understanding. Plan discussed with: Patient, Other (RN) My Orders Orders - SERG GREEN DNP Procedure Category Date Status Time Admit ADMIT 11/12/24 Verified 23:58 Allergies ARLYN 11/12/24 Verified 23:58 Code Status CODE 11/12/24 Verified 23:58 0.9% Ns 1000 Ml PHA 11/13/24 Verified 00:00 Oxygen Per Hour RT 11/12/24 Verified 23:58 Hydrocodone-Acet PHA 11/13/24 Verified 5/325mg Tab ([place] 00:00 Ondansetron Hcl PHA 11/13/24 Verified (Zofran) 00:00 Docusate Sodium PHA 11/13/24 Verified Capsule (Colace 00:00 Fall Risk Precautions ARLYN 11/12/[address] 23:58 Complete Blood Count LAB 11/13/24 Verified 04:00 Comprehensive LAB 11/13/24 Verified Metabolic Panel 04:00 Condition: Serious [facility] 11/12/24 Verified 23:58 Acetaminophen Tablet PHA 11/13/24 Verified (Tylenol Tablet) 00:00 Clear Liq Diet DIET 11/13/24 Verified Breakfast Bedrest With Bathroom [facility] 11/12/24 Verified Privileg 23:58 Maintain Bed Rest [facility] 11/12/24 Verified 23:58 Sequential [facility] 11/12/24 Verified Compression Device Nitroglycerin PHA 11/13/24 Verified Sublingual (Ntrostat 00:00 Morphine Sulfate PHA 11/13/24 Verified Injection 00:00 Stat Ekg For Chest [facility] 11/12/24 Verified Pain 23:58 Notify Md Of Changes [facility] 11/12/24 Verified From Base 23:58 Inspector [employer] For [facility] 11/12/24 Verified 24 Hours 23:58 Emergency Dysrhythmia ARLYN 11/12/24 Verified Protocol 23:58 Rhythm Strips Once [facility] 11/12/24 Verified Every Shift 23:58 Oxygen By Nasal RT 11/12/24 Verified Cannula 23:58 Ceftriaxone Ivpb PHA 11/13/24 Verified Rocephin 09:00 Ceftriaxone Ivpb PHA 11/13/24 Verified Rocephin 00:00 Metronidazole Ivpb PHA 11/13/24 Verified Flagyl 06:00 Problem List: (1) Nausea vomiting and diarrhea (2) Enteritis (3) Gastritis (4) Symptomatic bradycardia (5) Leukocytosis, unspecified (6) Generalized weakness Date of Service: Nov 12, 2024 Billing Provider: SERG GREEN DNP Common Visit Codes: [id number] INP/OBS CARE (HIGH) SERG GREEN DNP Nov 13, 2024 00:02
[2024-11-13] MEDS: cefTRIAXone 1GM/50ML D5W 50 ML IV ONE (01:15)
[2024-11-13] MEDS: SODIUM CHLORIDE 0.9% 1,000 ML IV SCH (02:00)
[2024-11-13] MEDS ORDERED: LATA0.008 EACHEYE (02:13)
[2024-11-13 06:07] LABS: Hematocrit 37.7 % (41.0-53.0); Hemoglobin 12.6 g/dL (13.5-17.5); Mean Corpuscular Hemoglobin 28.6 pg (28.0-32.0); Mean Corpuscular Volume 85.2 fL (80.0-100.0); Nucleated Red Blood Cells % 0.0 %
[2024-11-13 06:19] LABS: Alanine Aminotransferase 10 U/L (7-40); Albumin 3.3 g/dL (3.2-4.8); Alkaline Phosphatase 58 U/L (46-116); Anion Gap 7 (5-15); BUN/Creatinine Ratio 20.8 (10.0-20.0); Blood Urea Nitrogen 22 mg/dL (9-23); Carbon Dioxide 25 mmol/L (20-31); Glucose 85 mg/dL (74-106); Potassium 3.9 mmol/L (3.5-5.1); Sodium 141 mmol/L (136-145); Total Protein 5.8 g/dL (5.7-8.2)
[2024-11-13 06:20] LABS: Bilirubin, Total 0.8 mg/dL (0.2-1.0)
[2024-11-13 06:36] LABS: Calcium 8.3 mg/dL (8.7-10.4); Chloride 109 mmol/L (98-107)
[2024-11-13] MEDS: FAMOTIDINE (10MG/ML) 2ML VL IV SCH (09:44)
--- NOTE | 2024-11-13 12:22 | DVHPN2 ---
Subjective The patient is seen and examined at bedside. Still complain of abdominal pain. The diarrhea is improved. Reviewed: Care Plan, H&P, Labs, Medications, Previous Orders, Radiology Changes from previous H/P or p: No Changes Objective Vitals Vital Signs Date Time Temp Pulse Resp B/P (MAP) Pulse Ox O2 Delivery O2 Flow Rate FiO2 11/13/24 09:00 97.9 56 17 149/58 (88) 97 97.9 11/13/24 07:30 Room Air* 0 21 Intake/Output Intake and Output 11/13/24 07:00 Intake Total 150 ml Balance 150 ml Intake Oral 0 ml IV Total 150 ml # Voids 1 General Appearance: Alert, Oriented X3, Cooperative, No acute distress HEENT: Atraumatic, PERRLA, EOMI, Mucous membr. moist/pink Cardiovascular: Regular rate, Normal S1, Normal S2, No murmurs, Gallops, Rubs Abdomen: Normal bowel sounds, Soft, No tenderness Neuro: Cranial nerves 3-12 NL Psych/Mental Status: Mental status NL Medications Current Medications Medications Dose Ordered Sig/Richard Route Start Time Stop Time Status Last Admin Dose Admin Sodium Chloride 1,000 ml @ 60 mls/hr [id number] IV 11/13/24 00:00 11/13/24 02:00 60 MLS/HR Acetaminophen/ Hydrocodone Bitart 1 tab Q4HP PRN PO 11/13/24 00:00 Ondansetron HCl 4 mg Q4HP PRN IV 11/13/24 00:00 Docusate Sodium 100 mg BIDPRN PRN PO 11/13/24 00:00 Acetaminophen 650 mg Q6HP PRN PO 11/13/24 00:00 Nitroglycerin 0.4 mg Q5MINP PRN SL 11/13/24 00:00 Morphine Sulfate 2 mg Q30M PRN IV 11/13/24 00:00 Ceftriaxone Sodium 50 ml @ 100 mls/hr DAILY@0000 IV 11/14/24 00:00 Metronidazole 100 ml @ 100 mls/hr Q8HR IV 11/13/24 06:00 11/13/24 05:28 100 MLS/HR Famotidine 20 mg Q12HR IV 11/13/24 10:00 11/13/24 09:44 20 MG Laboratory Results Laboratory Tests 11/13/24 04:52 Chemistry Test 11/12/24 19:13 11/13/24 04:52 Albumin 3.7 g/dL (3.2-4.8) 3.3 g/dL (3.2-4.8) Calcium Level 8.4 mg/dL (8.7-10.4) L 8.3 mg/dL (8.7-10.4) L Total Protein 6.2 g/dL (5.7-8.2) 5.8 g/dL (5.7-8.2) Lipid panel Test 11/12/24 19:13 Lipase 44 U/L (12-53) LFT Test 11/12/24 19:13 11/13/24 04:52 Alanine Aminotransferase (ALT) 15 U/L (7-40) 10 U/L (7-40) Alkaline Phosphatase 68 U/L (46-116) 58 U/L (46-116) Aspartate Amino Transferase (AST) 17 U/L (13-40) 14 U/L (13-40) Total Bilirubin 1.1 mg/dL (0.2-1.0) H 0.8 mg/dL (0.2-1.0) Urinalysis Test 11/12/24 19:53 Urine Color Light-yellow (Yellow) Urine Clarity Clear (Clear) Urine pH 5.5 (5.0-9.0) Urine Specific [place] 1.009 (1.001-1.035) Urine Protein Negative (Negative) Urine Ketones Negative (Negative) Urine Blood Negative /uL (Negative) Urine Nitrite Negative (Negative) Urine Bilirubin Negative (Negative) Urine Urobilinogen Normal mg/dL (Negative) Urine Leukocyte Esterase Trace /uL (Negative) Urine RBC <1 /hpf (0 - 3) Urine Microscopic WBC 4 /HPF (0-3) H Urine Squamous Epithelial Cells Few /hpf (<5) Urine Bacteria None seen /hpf (None Seen) Urine Glucose Normal mg/dL (Normal) Labs and/or images reviewed: Labs reviewed by me Assessment/Plan Assessment/Plan Nausea vomiting and diarrhea Gastritis Enteritis Symptomatic bradycardia Leukocytosis, unspecified Generalized weakness Continuing current management Continuing with Zofran Waiting for stool culture Continuing IV antibiotics We will monitor heart rate PT to get the patient out of bed and ambulate We will order small-bowel follow-through to rule out obstruction Discharge planning This medical document was created using an electronic medical record system with [employer] direct computerized dictation system. Although this document has been carefully reviewed, there may still be some phonetic and typographical errors. These areas are purely typographical due to imperfections of the software programs, and do not reflect any compromise in the patient's medical care. Plan discussed with: Patient Date of Service: Nov 13, 2024 Billing Provider: PEDRO RICE MD Common Visit Codes: [id number] SAME DATE (HIGH) PEDRO RICE MD Nov 13, 2024 12:22
[2024-11-14] VITALS (8 sets, daily range): BP systolic 108–163; BP diastolic 57–85; PULSE 53–63; RESP 16–19; TEMP 97.4–98.7; O2SAT 97–99
[2024-11-14] MEDS: cefTRIAXone 1GM/50ML D5W 50 ML IV SCH (00:17)
--- NOTE | 2024-11-14 15:20 | DVHPN2 ---
Subjective The patient is seen and examined at bedside. No complaint today. Reviewed: Care Plan, H&P, Labs, Medications, Previous Orders, Radiology Changes from previous H/P or p: No Changes Eyes: No Pain, No Vision change, No Conjunctivae inflammation, No Eyelid inflammation, No Other, No Redness ENT: No Ear pain, No Ear discharge, No Nose pain, No Nose discharge, No Nose congestion, No Mouth pain, No Mouth swelling, No Throat pain, No Throat swelling, No Other Cardiovascular: No Chest Pain, No Palpitations, No Orthopnea, No Paroxysmal Noc. Dyspnea, No Edema, No Lt Headedness, No Other Respiratory: No Cough, No Dry, No Shortness of breath, No SOB with excertion, No Wheezing, No Hemoptysis, No Pleuritic Pain, No Sputum, No Other Gastrointestinal: Nausea, Vomiting, Abdominal Pain, Diarrhea; No Constipation, No Melena, No Hematochezia, No Other Genitourinary: No Dysuria, No Frequency, No Incontinence, No Hematuria, No Retention, No Other Musculoskeletal: No other, No neck pain, No shoulder pain, No arm pain, No back pain, No hand pain, No leg pain, No foot pain Skin: No Rash, No Lesions, No Jaundice, No Bruising, No Other Objective Vitals Vital Signs Date Time Temp Pulse Resp B/P (MAP) Pulse Ox O2 Delivery O2 Flow Rate FiO2 11/14/24 13:00 98.7 60 16 128/75 (92) 97 98.7 11/14/24 07:30 Room Air* 0 21 Intake/Output Intake and Output 11/14/24 07:00 Intake Total 2940 ml Output Total 1200 ml Balance 1740 ml Intake Oral 2570 ml IV Total 370 ml Output Urine Total 1200 ml # Voids 4 # Bowel Movements 1 General Appearance: Alert, Cooperative, No acute distress HEENT: Atraumatic, EOMI, Mucous membr. moist/pink Neck: Supple Lungs: Clear to auscultation, Normal air movement Cardiovascular: Regular rate, Normal S1, Normal S2, No murmurs, Gallops, Rubs Abdomen: Normal bowel sounds, Soft, No tenderness Neuro: Cranial nerves 3-12 NL Psych/Mental Status: Mental status NL Medications Current Medications Medications Dose Ordered Sig/Richard Route Start Time Stop Time Status Last Admin Dose Admin Sodium Chloride 1,000 ml @ 60 mls/hr [id number] IV 11/13/24 00:00 11/13/24 16:40 60 MLS/HR Acetaminophen/ Hydrocodone Bitart 1 tab Q4HP PRN PO 11/13/24 00:00 Ondansetron HCl 4 mg Q4HP PRN IV 11/13/24 00:00 Docusate Sodium 100 mg BIDPRN PRN PO 11/13/24 00:00 Acetaminophen 650 mg Q6HP PRN PO 11/13/24 00:00 Nitroglycerin 0.4 mg Q5MINP PRN SL 11/13/24 00:00 Morphine Sulfate 2 mg Q30M PRN IV 11/13/24 00:00 Ceftriaxone Sodium 50 ml @ 100 mls/hr DAILY@0000 IV 11/14/24 00:00 11/14/24 00:17 100 MLS/HR Metronidazole 100 ml @ 100 mls/hr Q8HR IV 11/13/24 06:00 11/14/24 13:44 100 MLS/HR Famotidine 20 mg Q12HR IV 11/13/24 10:00 11/14/24 09:56 20 MG Laboratory Results Laboratory Tests 11/13/24 04:52 Urinalysis Test 11/12/24 19:53 Urine Color Light-yellow (Yellow) Urine Clarity Clear (Clear) Urine pH 5.5 (5.0-9.0) Urine Specific [place] 1.009 (1.001-1.035) Urine Protein Negative (Negative) Urine Ketones Negative (Negative) Urine Blood Negative /uL (Negative) Urine Nitrite Negative (Negative) Urine Bilirubin Negative (Negative) Urine Urobilinogen Normal mg/dL (Negative) Urine Leukocyte Esterase Trace /uL (Negative) Urine RBC <1 /hpf (0 - 3) Urine Microscopic WBC 4 /HPF (0-3) H Urine Squamous Epithelial Cells Few /hpf (<5) Urine Bacteria None seen /hpf (None Seen) Urine Glucose Normal mg/dL (Normal) Microbiology Microbiology Date/Time Source Procedure Growth Status 11/13/24 18:31 Stool Stool Culture - Preliminary Resulted 11/13/24 18:31 Stool Shiga Toxin I & II Pending Resulted 11/13/24 18:31 Stool Clostridium difficile Toxin Assay - Final Resulted 11/13/24 06:50 Nose MRSA Screen - Final Complete Labs and/or images reviewed: Labs reviewed by me Assessment/Plan Assessment/Plan Nausea vomiting and diarrhea Gastritis Enteritis Symptomatic bradycardia Leukocytosis, unspecified Generalized weakness Continuing current management Continuing with Zofran Waiting for stool culture Continuing IV antibiotics We will monitor heart rate PT to get the patient out of bed and ambulate Waiting for small-bowel follow-through to rule out obstruction Discharge planning This medical document was created using an electronic medical record system with [employer] direct computerized dictation system. Although this document has been carefully reviewed, there may still be some phonetic and typographical errors. These areas are purely typographical due to imperfections of the software programs, and do not reflect any compromise in the patient's medical care. Plan discussed with: Patient Date of Service: Nov 14, 2024 Billing Provider: PEDRO RICE MD Common Visit Codes: [id number] INP/OBS CARE(HIGH) PEDRO RICE MD Nov 14, 2024 15:20
[2024-11-14] MEDS ORDERED: LORazepam 0.5 MG TAB PO PRN (19:00)
[2024-11-15] VITALS (10 sets, daily range): BP systolic 118–168; BP diastolic 74–89; PULSE 50–63; RESP 15–18; TEMP 96.7–98.6; O2SAT 99
[2024-11-15] MEDS ORDERED: GASTROGRAFIN 120 ML SOL ONE (10:41)
[2024-11-15] MEDS: LISINOPRIL 5 MG TAB PO SCH (13:05)
--- NOTE | 2024-11-15 13:17 | DVHPN2 ---
Subjective The patient is seen and examined at bedside. The abdominal pain improved. No diarrhea. Reviewed: Care Plan, H&P, Labs, Medications, Previous Orders, Radiology Changes from previous H/P or p: No Changes Eyes: No Pain, No Vision change, No Conjunctivae inflammation, No Eyelid inflammation, No Other, No Redness ENT: No Ear pain, No Ear discharge, No Nose pain, No Nose discharge, No Nose congestion, No Mouth pain, No Mouth swelling, No Throat pain, No Throat swelling, No Other Cardiovascular: No Chest Pain, No Palpitations, No Orthopnea, No Paroxysmal Noc. Dyspnea, No Edema, No Lt Headedness, No Other Respiratory: No Cough, No Dry, No Shortness of breath, No SOB with excertion, No Wheezing, No Hemoptysis, No Pleuritic Pain, No Sputum, No Other Gastrointestinal: Nausea, Vomiting, Abdominal Pain, Diarrhea; No Constipation, No Melena, No Hematochezia, No Other Genitourinary: No Dysuria, No Frequency, No Incontinence, No Hematuria, No Retention, No Other Musculoskeletal: No other, No neck pain, No shoulder pain, No arm pain, No back pain, No hand pain, No leg pain, No foot pain Skin: No Rash, No Lesions, No Jaundice, No Bruising, No Other Objective Vitals Vital Signs Date Time Temp Pulse Resp B/P (MAP) Pulse Ox O2 Delivery O2 Flow Rate FiO2 11/15/24 13:05 157/89 11/15/24 12:56 97.9 53 16 99 97.9 11/15/24 07:30 Room Air* 0 21 Intake/Output Intake and Output 11/15/24 07:00 Intake Total 1960 ml Output Total 800 ml Balance 1160 ml Intake Oral 1430 ml IV Total 530 ml Output Urine Total 800 ml # Voids 3 # Bowel Movements 1 General Appearance: Alert, Cooperative, No acute distress HEENT: Atraumatic, PERRLA, EOMI, Mucous membr. moist/pink Neck: Supple Cardiovascular: Regular rate, Normal S1, Normal S2, No murmurs, Gallops, Rubs Abdomen: Normal bowel sounds, Soft, No tenderness Neuro: Cranial nerves 3-12 NL Psych/Mental Status: Mental status NL Medications Current Medications Medications Dose Ordered Sig/Richard Route Start Time Stop Time Status Last Admin Dose Admin Sodium Chloride 1,000 ml @ 60 mls/hr [id number] IV 11/13/24 00:00 11/15/24 02:00 60 MLS/HR Acetaminophen/ Hydrocodone Bitart 1 tab Q4HP PRN PO 11/13/24 00:00 Ondansetron HCl 4 mg Q4HP PRN IV 11/13/24 00:00 Docusate Sodium 100 mg BIDPRN PRN PO 11/13/24 00:00 Acetaminophen 650 mg Q6HP PRN PO 11/13/24 00:00 Nitroglycerin 0.4 mg Q5MINP PRN SL 11/13/24 00:00 Morphine Sulfate 2 mg Q30M PRN IV 11/13/24 00:00 Ceftriaxone Sodium 50 ml @ 100 mls/hr DAILY@0000 IV 11/14/24 00:00 11/15/24 00:30 100 MLS/HR Metronidazole 100 ml @ 100 mls/hr Q8HR IV 11/13/24 06:00 11/15/24 13:04 100 MLS/HR Famotidine 20 mg Q12HR IV 11/13/24 10:00 11/15/24 08:58 20 MG Hydralazine HCl 10 mg Q6HP PRN IV 11/14/24 19:00 Lorazepam 0.5 mg Q8HP PRN PO 11/14/24 19:00 Lisinopril 10 mg DAILY PO 11/15/24 10:00 11/15/24 13:05 10 MG Laboratory Results Laboratory Tests 11/13/24 04:52 Urinalysis Test 11/12/24 19:53 Urine Color Light-yellow (Yellow) Urine Clarity Clear (Clear) Urine pH 5.5 (5.0-9.0) Urine Specific [place] 1.009 (1.001-1.035) Urine Protein Negative (Negative) Urine Ketones Negative (Negative) Urine Blood Negative /uL (Negative) Urine Nitrite Negative (Negative) Urine Bilirubin Negative (Negative) Urine Urobilinogen Normal mg/dL (Negative) Urine Leukocyte Esterase Trace /uL (Negative) Urine RBC <1 /hpf (0 - 3) Urine Microscopic WBC 4 /HPF (0-3) H Urine Squamous Epithelial Cells Few /hpf (<5) Urine Bacteria None seen /hpf (None Seen) Urine Glucose Normal mg/dL (Normal) Microbiology Microbiology Date/Time Source Procedure Growth Status 11/13/24 18:31 Stool Stool Culture - Preliminary Resulted 11/13/24 18:31 Stool Shiga Toxin I & II Pending Resulted 11/13/24 18:31 Stool Clostridium difficile Toxin Assay - Final Resulted 11/13/24 06:50 Nose MRSA Screen - Final Complete Labs and/or images reviewed: Labs reviewed by me Assessment/Plan Assessment/Plan Nausea vomiting and diarrhea Gastritis Enteritis Symptomatic bradycardia Leukocytosis, unspecified Generalized weakness Continuing current management Continuing with Zofran Waiting for stool culture Continuing IV antibiotics We will monitor heart rate PT to get the patient out of bed and ambulate We will order small-bowel follow-through to rule out obstruction Discharge planning This medical document was created using an electronic medical record system with [employer] direct computerized dictation system. Although this document has been carefully reviewed, there may still be some phonetic and typographical errors. These areas are purely typographical due to imperfections of the software programs, and do not reflect any compromise in the patient's medical care. Plan discussed with: Patient, Other (granddaughter) My Orders Orders - PEDRO RICE MD Procedure Category Date Status Time Small Bowel Series-W XY 11/15/24 Logged Gastrogra 09:00 Hydralazine Injection PHA 11/14/24 In Process (Apresoline Inject 19:00 Lorazepam Tablet PHA 11/14/24 In Process (Ativan Tablet) 19:00 Lisinopril Tablet PHA 11/15/24 In Process (Zestril Tablet) 10:00 Date of Service: Nov 15, 2024 Billing Provider: PEDRO RICE MD Common Visit Codes: 52785-[id number] INP/OBS CARE(HIGH) PEDRO RICE MD Nov 15, 2024 13:17
--- NOTE | 2024-11-15 14:09 | DVH ---
Procedure: XY SMALL BOWEL SERIES-W GASTROGRA Reason for study/Clinical History: Rule out small-bowel obstruction. Comparison Study: CT of the abdomen and pelvis dated 11/12/2024. Technique: Single contrast small bowel series performed. 240 mL Gastroview was ingested during the ex amination. FINDINGS/IMPRESSION: Initial wireless consultant view of the abdomen and pelvis demonstrates nonspecific mildly distended gas-filled sma ll bowel loops, predominantly in the left hemiabdomen with gas and scattered stool in the colon. Mild elevation of the right hemidiaphragm. Mild atelectasis in the lung bases. No significant calcificat ions are seen. Contrast passes through the stomach into the small bowel without significant delay. Co ntrast passes through the small bowel and reaches the colon by the 1 hour time point after ingestion, with no evidence for small bowel obstruction. No stricture or other abnormality visualized in the carson wel. Additional images were obtained at 2:00 a.m. and demonstrate contrast passing throughout the col on. Contrast is identified within the colon by 1 hour. This represents a normal small bowel transit time . No evidence of small-bowel obstruction.
[2024-11-15] MEDS: hydrALAZINE HCL 20 MG/ML VL IV PRN (16:57)
[2024-11-16 01:00] VITALS: BP 144/78; PULSE 55; RESP 12; TEMP 98.3; O2SAT 98
[2024-11-16 05:00] VITALS: BP 140/70; PULSE 51; RESP 14; TEMP 97.9; O2SAT 96
[2024-11-16 08:05] VITALS: PULSE 50
[2024-11-16 09:00] VITALS: BP 144/84; PULSE 52; RESP 16; TEMP 97.8; O2SAT 98
[2024-11-16] MEDS ORDERED: CEPH250C PO (12:01)
--- NOTE | 2024-11-16 12:02 | DVHDS2 ---
Discharge Summary Date of Admission Nov 12, 2024 at 23:58 Date of Discharge: Nov 16, 2024 Admitting Diagnosis Nausea vomiting and diarrhea Gastritis Enteritis Symptomatic bradycardia Leukocytosis, unspecified Generalized weakness Labs/Diagnostic Data: Laboratory Results Test 11/13/24 18:31 11/13/24 04:52 11/12/24 19:53 11/12/24 19:13 Stool for White Cells None seen White Blood Count 8.0 10^3/uL (4.4-10.8) Red Blood Count 4.42 10^6/uL (4.5-5.90) Hemoglobin 12.6 g/dL (13.5-17.5) Hematocrit 37.7 % (41.0-53.0) Mean Corpuscular Volume 85.2 fL (80.0-100.0) Mean Corpuscular Hemoglobin 28.6 pg (28.0-32.0) Mean Corpuscular Hemoglobin Concent 33.5 g/dL (32.0-36.0) Red Cell Distribution Width 13.5 % (11.8-14.3) Platelet Count 185 10^3/uL (140-450) Mean Platelet Volume 9.3 fL (6.9-10.8) Neutrophils (%) (Auto) 62.5 % (37.0-80.0) Lymphocytes (%) (Auto) 24.2 % (10.0-50.0) Monocytes (%) (Auto) 9.1 % (0.0-12.0) Eosinophils (%) (Auto) 3.9 % (0.0-7.0) Basophils (%) (Auto) 0.3 % (0.0-2.0) Neutrophils # (Auto) 5.0 10 ^3/uL (1.6-8.6) Lymphocytes # (Auto) 1.9 10 ^3/uL (0.4-5.4) Monocytes # (Auto) 0.7 10 ^3/uL (0-1.3) Eosinophils # (Auto) 0.3 10 ^3/uL (0-0.8) Basophils # (Auto) 0 10 ^3/uL (0-0.2) Nucleated Red Blood Cells 0.0 % Sodium Level 141 mmol/L (136-145) Potassium Level 3.9 mmol/L (3.5-5.1) Chloride Level 109 mmol/L (98-107) Carbon Dioxide Level 25 mmol/L (20-31) Anion Gap 7 (5-15) Blood Urea Nitrogen 22 mg/dL (9-23) Creatinine 1.06 mg/dL (0.700-1.30) Glomerular Filtration Rate Calc 71 mL/min (>90) BUN/Creatinine Ratio 20.8 (10.0-20.0) Serum Glucose 85 mg/dL (74-106) Calcium Level 8.3 mg/dL (8.7-10.4) Total Bilirubin 0.8 mg/dL (0.2-1.0) Aspartate Amino Transferase (AST) 14 U/L (13-40) Alanine Aminotransferase (ALT) 10 U/L (7-40) Alkaline Phosphatase 58 U/L (46-116) Total Protein 5.8 g/dL (5.7-8.2) Albumin 3.3 g/dL (3.2-4.8) Urine Color Light-yellow (Yellow) Urine Clarity Clear (Clear) Urine pH 5.5 (5.0-9.0) Urine Specific [place] 1.009 (1.001-1.035) Urine Protein Negative (Negative) Urine Ketones Negative (Negative) Urine Blood Negative /uL (Negative) Urine Nitrite Negative (Negative) Urine Bilirubin Negative (Negative) Urine Urobilinogen Normal mg/dL (Negative) Urine Leukocyte Esterase Trace /uL (Negative) Urine RBC <1 /hpf (0 - 3) Urine Microscopic WBC 4 /HPF (0-3) Urine Squamous Epithelial Cells Few /hpf (<5) Urine Bacteria None seen /hpf (None Seen) Urine Glucose Normal mg/dL (Normal) Lactic Acid Level 1.5 mmol/L (0.4-2.0) Troponin I High Sensitivity 5 ng/L (</=54) Lipase 44 U/L (12-53) Other Laboratory Tests 11/13/24 04:52 Brief Hx & Hospital Course: This is an 79 years old male with past medical history hypertension come to emergency department because of intractable nausea and vomiting and diarrhea. As reported by patient's granddaughter patient had episode of nausea and vomiting and loose yellowish diarrhea 3 times. Patient unable to keep anything down. Had severe abdominal pain, dizziness, generalized weakness. The patient was seen in the emergency department. His WBC was 11.3 he has had normal temperature at 98.1. CT abdomen and pelvis showed mild gastric wall thickening could be due to inadequate distention/mild gastritis, small bowel loops fluid- filled with mild distention of the proximal duodenum up to 3.2 cm which may be associated with enteritis and ileus, small bowel obstruction can not be excluded. Patient was admitted. The patient was put on IV antibiotic with Flagyl 500 mg IV Q 8 hours. The patient stool was sent. Stool cultures negative. Small-bowel follow-through showed no acute obstruction. Patient had multiple bowel movement. Stool C diff is negative. His diarrhea subsequently improved. He was rehydrate and replace electrolytes. He able to tolerate diet today. I am going to discharge him home. Advised him to follow up with primary care physician 1-2 weeks. Activity as tolerated. Diet per home diet. Physical exam HEENT: Normocephalic atraumatic pupils equal react to light and accommodation. Extraocular muscles intact, conjunctiva pink, oropharynx moist, no thrush, no exudate. Lymphatic: No lymphadenopathy Cardiovascular exam: S1, S2 was heard. No murmurs, rubs, gallops Lung: Clear on auscultation bilaterally, no wheeze, rale, rhonchi. GI: Abdominal soft, nondistended, nontenderness, positive bowel sounds. Extremity: No crepitus, cyanosis, edema. Pedal pulses present bilateral. Full range of motion. Skin: Normal turgor, no rash. Psych: Alert, oriented x3. Neurology: No focal deficits, cranial nerve II to XII grossly intact. This medical document was created using an electronic medical record system with [employer] computerized dictation system. Although this document has been carefully reviewed, there may still be some phonetic and typographical errors. These areas are purely typographical due to imperfections of the software programs, and do not reflect any compromise in the patient's medical care. Condition at Discharge: Stable Final Diagnosis/Problems List Nausea vomiting and diarrhea Gastritis Enteritis Symptomatic bradycardia Leukocytosis, unspecified Generalized weakness Discharge Disposition: Home Discharge Instruct/Medications Diet: Regular Activity: No Restrictions, As Tolerated Follow Up/Referral: pcp 1-2 weeks Medications: see med list Scheduled Cephalexin (Keflex Capsule), 1 CAP PO QID Latanoprost (Latanoprost), 1 DROP EACHEYE HS, (Reported) Lisinopril (Lisinopril), 10 MG PO DAILY, (Reported) Discharge Statement: "Patient was advised to return to the ER or call 911 if any headaches, dizziness, shortness of breath, chest pain, abdominal pain, bleeding, fevers, or worsening of medical condition. Patient was counseled about treatment plan, medications, possible side effects, patientverbalized understanding. All questions were answered to the best of my ability. This discharge took greater then 30 minutes in planning, reviewing documentation, counseling the patient, and discussing with other team members." ASSESSMENT ASSESSMENT Assessment diarrhea Gastroenteritis Date of Service: Nov 16, 2024 Billing Provider: PEDRO RICE MD Common Visit Codes: 31579-COC/OBS DISCH DAY >30min PEDRO RICE MD Nov 16, 2024 12:02
[2024-11-16 13:00] VITALS: PULSE 54; RESP 15; TEMP 98; O2SAT 99
[2024-11-16 14:00] VITALS: BP 146/74; PULSE 55
== END 2024-11-16 14:26 | disposition home or self-care (01) | DRG 241 ==
LOC: ER 18:00 → OVERFLOW 23:58 → TELE-WESTW 11-13 01:51
PROVIDERS: ADMIT Internal Medicine; ATTEND Internal Medicine
DX: K29.70 Gastritis, unspecified, without bleeding (principal); A04.9 Bacterial intestinal infection, unspecified; D72.829 Elevated white blood cell count, unspecified; Z79.899 Other long term (current) drug therapy
CPT/HCPCS: 36415; 74176; 74250; 80053; 81001; 83605; 83690; 84484; 85025; 85048; 87045; 87081; 87177; 87493; 96361; 96365; G0378; J3490